=== PATIENT | male | born 1965 | race Caucasian/White ===

== ENCOUNTER 2023-03-18 07:53 | Day surgery (SDC) | payer BC ==
[2023-03-14 12:16] VITALS: BMI 27.7
[2023-03-18] MEDS ORDERED: PROPOFOL 120 ML ONE (08:08)
[2023-03-18] MEDS ORDERED: GLYCOPYRROLATE 0.2 MG/1 ML VIAL ONE (09:03)
[2023-03-18 13:55] VITALS: RESP 15
[2023-03-18 13:58] VITALS: BP 98/50; PULSE 45; TEMP 97.4
== END 2023-03-18 09:30 | disposition home or self-care (01) ==
LOC: FASU-ENDO 07:53
PROVIDERS: ATTEND Internal Medicine Gastroenterology
PROC: 0DJD8ZZ Inspection of Lower Intestinal Tract, Via Natural or Artificial Opening Endoscopic (ICD-10-PCS; principal; 2023-03-18 08:46)
DX: Z12.11 Encounter for screening for malignant neoplasm of colon (principal); K57.30 Diverticulosis of large intestine without perforation or abscess without bleeding